=== PATIENT | female | born 1930 | race Caucasian/White ===

== ENCOUNTER 2017-02-15 12:42 | Inpatient (IN) | payer MEDICARE ==
[2017-02-15 13:08] LABS: INR-International Normal Ratio 1.2; PTT 28.3 SEC (22.9-36.1); Prothrombin Time 15.7 SEC (12.0-14.7)
[2017-02-15 13:18] LABS: ALT (SGPT) 9 U/L (8-55); AST (SGOT) 15 U/L (5-34); Albumin 3.7 g/dL (3.4-4.8); Alkaline Phosphatase 68 U/L (40-150); Anion Gap 17 mmol/L (10-20); BUN (Urea Nitrogen) 21 mg/dL (9.8-20.1); Bilirubin, Total 0.8 mg/dL (0.2-1.2); Calc. Creatinine Clearance 0 mL/min (70-130); Calcium 9.2 mg/dL (7.8-10.44); Carbon Dioxide 23 mmol/L (23-31); Chloride 93 mmol/L (98-107); Estimated GFR-MDRD 43; Globulin 3.3 g/dL (2.4-3.5); Glucose 100 mg/dL (83-110); Potassium 5.1 mmol/L (3.5-5.1); Sodium 128 mmol/L (136-145)
[2017-02-15 13:21] LABS: Band 1 % (5-11); CKMB 0.8 ng/mL (0-6.6); Hemoglobin 13.2 g/dL (12.0-16.0); Lymphocytes 15 % (21-51); MDiff Complete? YES; Mean Corpuscular HGB CONC 36.3 g/dL (32.0-36.0); Mean Corpuscular Hemoglobin 34.6 pg (27.0-31.0); Mean Corpuscular Volume 95.3 fl (81.0-99.0); Mean Platelet Volume 6.1 fL (7.4-10.4); Monocytes 7 % (0-10); Neutrophil 77 % (42-75); Platelet Count 242 thou/uL (130-400); RBC Distribution Width 12.1 % (11.5-14.5); Red Blood Cell (RBC) Count 3.81 mill/uL (4.20-5.40); Troponin I Less than 0.010 ng/mL (< 0.028); White Blood Cell (WBC) Count 14.8 thou/uL (4.8-10.8)
[2017-02-15] MEDS ORDERED: Acetaminophen 325 MG TAB ONE (13:30)
[2017-02-15 13:38] LABS: Bilirubin Negative (Negative); Blood, Urine Negative (Negative); Clarity Clear (Clear); Glucose, Urine (Dipstick) Negative (Negative); Leukocyte Negative (Negative); Nitrite Negative (Negative); Protein, Urine (Dipstick) 30 mg/dL (Neg-Trace); Specific Gravity, Urine 1.015 (1.005-1.030)
[2017-02-15 13:39] LABS: Bacteria/HPF None Seen HPF (None Seen); RBC/HPF 0-3 HPF (0-3); Squamous Epithelial 0-3 HPF (0-3); WBC/HPF None Seen HPF (0-3)
[2017-02-15] MEDS ORDERED: Azithromycin 500 MG VIAL ONE (15:11)
--- NOTE | 2017-02-15 15:22 | RAD ---
PORTABLE CHEST: DATE: 02/15/17. PROVIDED CLINICAL HISTORY: Altered mental status and fever. FINDINGS: No comparisons. The cardiac silhouette appears enlarged. There is ectasia or aneurysm involving the descending thor acic aorta. The descending thoracic aorta appears tortuous. There is elevation of the right hemidi aphragm of unknown chronicity. There is opacity involving the right middle lung zone which appears parenchymal in nature and may reflect pneumonia. Opacity involving the left lower lung zone appears somewhat mass-like. It is uncertain whether this represents a portion of the large hiatal hernia o r this could be an additional area of consolidation or mass. IMPRESSION: 1. Ectasia/aneurysm of the descending thoracic aorta. 2. Right mid lung zone airspace disease compatible with pneumonia in the appropriate clinical compl ex. 3. Elevation of the right hemidiaphragm of unknown chronicity. 4. Mass-like opacity at the left lung base. Correlation with lateral view or chest CT recommended. POS: [facility]
--- NOTE | 2017-02-15 15:24 | CT ---
CT BRAIN: DATE: 02/15/17. PROVIDED CLINICAL HISTORY: Altered mental status and slurred speech. FINDINGS: No comparisons. The ventricular system appears normal in size and morphology. There is no evidence for intracranial hemorrhage or mass effect. Extensive chronic microvascular ischemic changes are s een involving the periventricular white matter and right basal ganglia. The osseous structures and extracranial soft tissues demonstrate an unremarkable CT appearance. IMPRESSION: 1. No evidence for intracranial hemorrhage or mass effect. 2. Extensive chronic microvascular ischemic change. POS: [facility]
--- NOTE | 2017-02-15 17:11 | CT ---
CT ANGIOGRAM OF THE CHEST AORTIC DISSECTION PROTOCOL HISTORY: Congenital aneurysm versus dissection. Widening of the aorta seen on chest x-ray. TECHNIQUE: A CT angiogram of the chest and abdomen was performed after the intravenous administration of contra st, and 3D rendering was provided. FINDINGS: There is wedge-shaped right upper lobe air space opacity, concerning for pneumonia. Obstructive pro ximal mass cannot be excluded. There are a few paratracheal lymph nodes. The pulmonary trunk measures 31 mm, abnormally dilated. There is mild atherosclerotic plaque of the aorta. There is ectasia and mild tortuosity of the aorta without dilatation. There is a large hia stuart hernia, for which there was organoaxial volvulus without evidence of obstruction. The distal common bile duct measures just over a centimeter. There is mild intrahepatic biliary dil atation. No calculus is seen on this examination. There is some tapering of the distal common bile duct. The celiac trunk and superior mesenteric artery are both patent. No dilated loops of bowel. There are spondylotic changes throughout the spine. IMPRESSION: 1. No aortic dissection nor aneurysm. 2. Extensive tortuosity of the thoracic aorta, including the ascending, transverse, and descending thoracic aorta with some atherosclerotic plaque. 3. Organoaxial volvulus without evidence of obstruction. This is likely chronic in nature, due to the large hernia. 4. Dilatation of the thoracic esophagus, likely due to chronic volvulus. 5. Peripheral wedge-shaped opacity in the right upper lobe, likely an infectious process, although a proximal obstructing mass cannot be excluded, and followup after treatment is recommended. 6. Mildly prominent paratracheal lymph nodes, that may be reactive. 7. Mild extrahepatic and intrahepatic biliary dilatation without obstructing mass seen. Follow-up ERCP or MRCP may be of benefit in this patient. 8. Mild dilatation of the pulmonary trunk, suggesting pulmonary arterial hypertension. 9. Small right pleural effusion. POS: [facility]
[2017-02-15] MEDS ORDERED: Bisacodyl 5 MG TAB PO PRN (18:48)
[2017-02-15] MEDS ORDERED: Milk Of Magnesia 30 ML UDCUP PO PRN (18:48)
[2017-02-15] MEDS ORDERED: traMADol HCl 50 MG TAB PO PRN (19:29)
[2017-02-15] MEDS: Montelukast Sodium 10 mg Tablet PO SCH (22:04)
[2017-02-15] MEDS: Gabapentin 300 MG CAP PO SCH (22:05)
[2017-02-15] MEDS: TROSPIUM 20 MG TABLET PO SCH (22:05)
--- NOTE | 2017-02-16 01:39 | HP ---
DATE OF ADMISSION: 02/15/2017 CHIEF COMPLAINT: Altered mental status with fevers. HISTORY OF PRESENT ILLNESS: Patient is an 86-year-old white female who apparently has a history of moderate dementia, who lives with her family. The family states that the last night, patient was mo re confused, speech was slightly slower than usual. This morning when she woke up, she had some slu rring of her words, more problems with memory and more confusion. She was found to have fever and w as brought to the hospital for evaluation. PAST MEDICAL HISTORY: 1. Macular degeneration. 2. Dementia, Alzheimer's type. 3. History of hypertension. 4. History of hyperlipidemia. 5. Hypothyroidism. 6. History of asthma. PAST SURGICAL HISTORY: Patient has history of right knee replacement, bilateral cataracts and bobby cystectomy. ALLERGIES: SHELLFISH. CURRENT MEDICATIONS: Synthroid 75 mcg daily, montelukast 10 mg daily, gabapentin 300 mg 2 tablets d aily, benazepril 10 mg q.p.m. tramadol 50 mg q.6 h. p.r.n. pain, calcium with vitamin D daily and Zy rtec 10 mg p.o. daily p.r.n. allergies. FAMILY HISTORY: Positive family history of hypertension and heart disease. REVIEW OF SYSTEMS: Patient has had a couple days of decreased appetite with occasional cough, nonpr oductive, some hoarseness was reported. No sore throat. No increased rhinorrhea above her baseline . No recent visual changes reported. Patient had fevers on the day of admission and increased conf usion as in HPI. Appetite again has been decreased, but no emesis nor diarrhea reported. No chest pain. No obvious shortness of breath reported. No dysuria, hematuria. No change in urinary freque ncy. No significant weight loss nor weight gain reported. No new rashes. Patient denies back pain . Patient again has dementia and is a poor historian. Review of systems obtained through hospital records and from family reports. PHYSICAL EXAMINATION: VITAL SIGNS: Blood pressure was 113/53, temperature initially in the emergency room was 101.3, now 97.5; pulse 82; respiratory rate was 20, O2 sat with 95% on 2 liters. GENERAL: Elderly white female, confused, in no obvious distress. HEENT: Atraumatic, normocephalic. Extraocular movements were intact. Pupils were equal, round, an d reactive to light and accommodation. Oropharynx, mucous membranes were moist. No exudate, discha rge or lesions. NECK: Supple. No masses palpated. No bruits auscultated. CHEST: Had coarse breath sounds without rales or wheezes. HEART: Regular rate and rhythm with occasional ectopic beats. ABDOMEN: Soft, nontender, nondistended. No masses were palpated. EXTREMITIES: Trace edema at the ankles bilaterally. BACK: No CVA tenderness. LABORATORY DATA AND X-RAY FINDINGS: Chest x-ray showed right mid lung zone airspace disease compati ble with pneumonia, the hemidiaphragm was noted as well with some widening of the mediastinum, so a CT scan of the chest was obtained, which showed no aortic dissection or aneurysm. There was an exte nsively tortuous thoracic aorta including this ascending transverse and descending thoracic aorta wi th arthrosclerotic plaques. There were signs of a chronic volvulus, which was not obstructive to th e large hiatal hernia. There was a wedge-shaped peripheral opacity in the right upper lung consiste nt with pneumonia and there is a small right pleural effusion. There were some mild extrahepatic an d intrahepatic biliary dilatation without obstructing mass seen. CBC had a white count 14,800 with an H and H of 13.2 and 36.3. PT/INR was in the normal range. Labs showed a sodium of 128, chloride of 96, BUN of 21 and creatinine of 1.19. ASSESSMENT AND PLAN: 1. Pneumonia. Patient was started on Zithromax and Rocephin. We will start her on breathing treat ments to help with any respiratory congestion. Continue oxygen to keep sats greater than 90%. I wi ll follow up chest x-ray in 48 hours. 2. Hyponatremia. Patient was given half a liter of normal saline in the emergency room, unsure abo ut patient's baseline serum sodium. We will try to obtain old records and will follow this for any signs of worsening or improvement. 3. Dementia, Alzheimer's type. Patient is on Aricept. We will have a monitor for the bed and fall precautions. DISPOSITION: Plan is for the patient to be discharged to home once she is medically stable.
[2017-02-16] MEDS: Levothyroxine Sodium 25 MCG TAB PO SCH (05:57)
[2017-02-16 06:30] LABS: #Basophils 0.1 thou/uL (0.0-0.2); #Eosinphils 0.2 thou/uL (0.0-0.7); #Lymphocytes 0.9 thou/uL (1.20-3.40); #Monocytes 1.1 thou/uL (0.11-0.59); #Neutrophils 10.9 thou/uL (1.40-6.50); %Basophils 0.9 % (0.0-1.0); %Eosinophils 1.3 % (0.0-10.0); %Lymphocytes 6.6 % (21.0-51.0); %Monocytes 8.1 % (0.0-10.0); %Neutrophils 83.1 % (42.0-75.0); Hemoglobin 12.2 g/dL (12.0-16.0); Mean Corpuscular HGB CONC 33.9 g/dL (32.0-36.0); Mean Corpuscular Hemoglobin 32.3 pg (27.0-31.0); Mean Corpuscular Volume 95.3 fl (81.0-99.0); Mean Platelet Volume 6.3 fL (7.4-10.4); Platelet Count 249 thou/uL (130-400); Red Blood Cell (RBC) Count 3.78 mill/uL (4.20-5.40); White Blood Cell (WBC) Count 13.1 thou/uL (4.8-10.8)
[2017-02-16 07:13] LABS: ALT (SGPT) 9 U/L (8-55); AST (SGOT) 13 U/L (5-34); Albumin 3.5 g/dL (3.4-4.8); Alkaline Phosphatase 72 U/L (40-150); Anion Gap 16 mmol/L (10-20); BUN (Urea Nitrogen) 15 mg/dL (9.8-20.1); Bilirubin, Total 0.5 mg/dL (0.2-1.2); Calc. Creatinine Clearance 63 mL/min (70-130); Calcium 8.9 mg/dL (7.8-10.44); Carbon Dioxide 26 mmol/L (23-31); Chloride 97 mmol/L (98-107); Estimated GFR-MDRD 69; Globulin 2.5 g/dL (2.4-3.5); Glucose 99 mg/dL (83-110); Potassium 4.9 mmol/L (3.5-5.1); Sodium 134 mmol/L (136-145)
--- NOTE | 2017-02-16 09:03 | RAD ---
CHEST 1 VIEW: HISTORY: Pneumonia. COMPARISON: Chest 1 view prior day. FINDINGS: There are increased components of right upper lobe airspace opacity. Ectasia and tortuosity of the aorta is similar. IMPRESSION: Right upper lobe pneumonia. Remainder of the other findings are unchanged. POS: [facility]
[2017-02-16] MEDS: Calcium Carbonate + Vit D 500 MG TAB PO SCH (09:13)
[2017-02-16] MEDS: Gabapentin 300 MG CAP PO SCH ×2 (09:14→23:00)
[2017-02-16] MEDS: Multivitamin W/ Minerals 1 TAB PO SCH (09:14)
[2017-02-16] MEDS: Loratadine 10 MG TAB PO SCH (09:14)
[2017-02-16] MEDS: TROSPIUM 20 MG TABLET PO SCH ×2 (09:15→23:00)
[2017-02-16] MEDS: cefTRIAXone\\ROCEPHIN 1 GM in Sodium Chloride 0.9% 100 ML IVPB SCH (14:30)
[2017-02-16] MEDS: Azithromycin 500 MG in Sodium Chloride 0.9% 250 ML 250 ML IVPB SCH (15:42)
[2017-02-16] MEDS: Montelukast Sodium 10 mg Tablet PO SCH (23:00)
[2017-02-16] MEDS: Acetaminophen 325 MG TAB PO PRN (23:00)
[2017-02-17] MEDS: Levothyroxine Sodium 25 MCG TAB PO SCH (05:53)
[2017-02-17] MEDS: Gabapentin 300 MG CAP PO SCH ×2 (08:35→21:14)
[2017-02-17] MEDS: Loratadine 10 MG TAB PO SCH (08:35)
[2017-02-17] MEDS: Multivitamin W/ Minerals 1 TAB PO SCH (08:35)
[2017-02-17] MEDS: Calcium Carbonate + Vit D 500 MG TAB PO SCH (08:35)
[2017-02-17] MEDS: TROSPIUM 20 MG TABLET PO SCH ×2 (08:36→21:14)
[2017-02-17] MEDS: cefTRIAXone\\ROCEPHIN 1 GM in Sodium Chloride 0.9% 100 ML IVPB SCH (13:16)
[2017-02-17] MEDS: Azithromycin 500 MG in Sodium Chloride 0.9% 250 ML 250 ML IVPB SCH (14:45)
[2017-02-17] MEDS: Montelukast Sodium 10 mg Tablet PO SCH (21:14)
[2017-02-18] MEDS: Levothyroxine Sodium 25 MCG TAB PO SCH (05:40)
[2017-02-18 07:16] LABS: Anion Gap 13 mmol/L (10-20); BUN (Urea Nitrogen) 9 mg/dL (9.8-20.1); Calc. Creatinine Clearance 66 mL/min (70-130); Calcium 9.5 mg/dL (7.8-10.44); Carbon Dioxide 29 mmol/L (23-31); Chloride 96 mmol/L (98-107); Estimated GFR-MDRD 73; Glucose 105 mg/dL (83-110); Potassium 4.2 mmol/L (3.5-5.1); Sodium 134 mmol/L (136-145)
[2017-02-18 07:20] LABS: #Basophils 0.1 thou/uL (0.0-0.2); #Eosinphils 0.2 thou/uL (0.0-0.7); #Lymphocytes 1.4 thou/uL (1.20-3.40); %Basophils 1.6 % (0.0-1.0); %Eosinophils 2.1 % (0.0-10.0); %Lymphocytes 15.7 % (21.0-51.0); %Neutrophils 68.6 % (42.0-75.0); Hemoglobin 12.3 g/dL (12.0-16.0); Mean Corpuscular HGB CONC 33.9 g/dL (32.0-36.0); Mean Corpuscular Hemoglobin 32.7 pg (27.0-31.0); Mean Corpuscular Volume 96.3 fl (81.0-99.0); Mean Platelet Volume 5.8 fL (7.4-10.4); Platelet Count 270 thou/uL (130-400); RBC Distribution Width 12.3 % (11.5-14.5); Red Blood Cell (RBC) Count 3.75 mill/uL (4.20-5.40); White Blood Cell (WBC) Count 8.7 thou/uL (4.8-10.8)
[2017-02-18] MEDS: TROSPIUM 20 MG TABLET PO SCH ×2 (08:45→22:24)
[2017-02-18] MEDS: Multivitamin W/ Minerals 1 TAB PO SCH (08:45)
[2017-02-18] MEDS: Calcium Carbonate + Vit D 500 MG TAB PO SCH (08:46)
[2017-02-18] MEDS: Gabapentin 300 MG CAP PO SCH ×2 (08:46→20:43)
[2017-02-18] MEDS: Loratadine 10 MG TAB PO SCH (08:46)
[2017-02-18 12:01] VITALS: BMI 31.4
[2017-02-18] MEDS: cefTRIAXone\\ROCEPHIN 1 GM in Sodium Chloride 0.9% 100 ML IVPB SCH (13:52)
[2017-02-18] MEDS: Azithromycin 500 MG in Sodium Chloride 0.9% 250 ML 250 ML IVPB SCH (16:02)
[2017-02-18] MEDS ORDERED: Lorazepam 0.5 MG TAB PO SCH (20:30)
[2017-02-18] MEDS: Montelukast Sodium 10 mg Tablet PO SCH (20:43)
[2017-02-18] MEDS: Acetaminophen 325 MG TAB PO PRN (20:44)
--- NOTE | 2017-02-18 20:55 | RAD ---
FRONTAL VIEW CHEST 02/18/17 COMPARISON: Examination two days prior. CLINICAL HISTORY: Tachypnea. FINDINGS: There remains consolidation within the right upper lobe. Patchy bibasilar opacities remain. There re cindy enlargement of the cardiomediastinal silhouette. IMPRESSION: Redemonstration of right upper lobe consolidation. Patchy bibasilar opacities also remain. Continued followup is recommended. POS: [facility]
[2017-02-19] MEDS: Levothyroxine Sodium 25 MCG TAB PO SCH (06:19)
[2017-02-19 06:24] VITALS: BP 165/79; TEMP 98.3
[2017-02-19 07:24] LABS: #Basophils 0.1 thou/uL (0.0-0.2); #Eosinphils 0.4 thou/uL (0.0-0.7); #Lymphocytes 1.2 thou/uL (1.20-3.40); #Monocytes 0.9 thou/uL (0.11-0.59); #Neutrophils 5.4 thou/uL (1.40-6.50); %Basophils 1.7 % (0.0-1.0); %Eosinophils 4.6 % (0.0-10.0); %Lymphocytes 15.3 % (21.0-51.0); %Monocytes 11.5 % (0.0-10.0); %Neutrophils 66.9 % (42.0-75.0); Hemoglobin 12.5 g/dL (12.0-16.0); Mean Corpuscular Hemoglobin 32.7 pg (27.0-31.0); Mean Corpuscular Volume 96.2 fl (81.0-99.0); Mean Platelet Volume 5.7 fL (7.4-10.4); Platelet Count 287 thou/uL (130-400); RBC Distribution Width 12.2 % (11.5-14.5); Red Blood Cell (RBC) Count 3.81 mill/uL (4.20-5.40)
[2017-02-19 07:41] LABS: Anion Gap 14 mmol/L (10-20); BUN (Urea Nitrogen) 12 mg/dL (9.8-20.1); Calc. Creatinine Clearance 71 mL/min (70-130); Calcium 9.1 mg/dL (7.8-10.44); Carbon Dioxide 30 mmol/L (23-31); Chloride 97 mmol/L (98-107); Estimated GFR-MDRD 80; Glucose 94 mg/dL (83-110); Potassium 4.7 mmol/L (3.5-5.1); Sodium 136 mmol/L (136-145)
[2017-02-19] MEDS: Gabapentin 300 MG CAP PO SCH (08:46)
[2017-02-19] MEDS: Loratadine 10 MG TAB PO SCH (08:46)
[2017-02-19] MEDS: Multivitamin W/ Minerals 1 TAB PO SCH (08:46)
[2017-02-19] MEDS ORDERED: Levalbuterol HCl 0.63 MG/3 ML NEB NEB PRN (10:34)
[2017-02-19] MEDS: Calcium Carbonate + Vit D 500 MG TAB PO SCH (11:09)
[2017-02-19] MEDS: TROSPIUM 20 MG TABLET PO SCH (11:09)
[2017-02-19] MEDS ORDERED: Levalbuterol HCl 1.25 MG/0.5 ML NEB NEB SCH (15:00)
--- NOTE | 2017-02-19 18:53 | DIS ---
DATE OF ADMISSION: 02/15/2017 DATE OF TRANSFER: 02/19/2017 ADMISSION DIAGNOSES: 1. Right upper lobe community-acquired pneumonia. 2. Hyponatremia. 3. Renal insufficiency. DISCHARGE DIAGNOSES: 1. Right upper lobe community-acquired pneumonia. 2. Hyponatremia. 3. Renal insufficiency. ATTENDING PHYSICIAN: Dr. Malka Noriega. HISTORY AND PHYSICAL: Please see dictated report from the date of admission. PROCEDURES: 1. Brain CT on 02/15/2017 shows no evidence for intracranial hemorrhage or mass effect. Extensive chronic microvascular ischemic change. 2. Chest x-ray from 02/15/2017 shows ectasias/aneurysm of the descending thoracic aorta. Right mid lung zone airspace disease compatible with pneumonia in the appropriate clinical complex. Elevatio n of the right hemidiaphragm of unknown chronicity. Mass-like opacity at the left lung base, correl ation with lateral view of chest CT recommended or chest CT recommended. 3. CT dissection protocol from 02/15/2017. No aortic dissection or aneurysm. Extensive tortuosity of the thoracic aorta, including the ascending, transverse, and descending thoracic aorta with some atherosclerotic plaque. Organoaxial volvulus without evidence of obstruction. This is likely guide visitor barb in nature, due to a large hernia. Dilatation of the thoracic esophagus likely due to chronic vo lvulus. Peripheral wedge shaped opacity in the right upper lobe, likely an infectious process, alth ough a proximal obstructing mass cannot be excluded and followup after treatment is recommended. Mi ldly prominent paratracheal lymph nodes, that may be reactive. Mild extrahepatic and intrahepatic b iliary duct dilatation without obstructing mass seen. Followup ERCP or MRCP may be of benefit in th is patient. Mild dilatation of the pulmonary trunk, suggesting pulmonary arterial hypertension. Sm all right pleural effusion. 4. Chest x-ray on 02/16/2017 shows right upper lobe pneumonia. Remainder of other findings unchang ed. 5. Chest x-ray from 02/18/2017 shows patchy bibasilar opacities remaining. Redemonstration of righ t upper lobe consolidation. HOSPITAL COURSE: Ms. Kaye is an 86-year-old female with past medical history of asthma/C OPD, who has dementia and is cared for by her son and [id number] and has 24-hour caregiver who presented to the emergency room with alteration of mental status. Her workup included studies above which essentially pointed to a right upper lobe pneumonia as the cause. The patient initially had fever in the ER. This improved upon admission to the floor and she has been afebrile for greater th an 48 hours. She had a leukocytosis which also improved to normal during her treatment course. She had blood cultures x2 which have been negative at 48 hours. Her chest x-ray has been stable. The patient was treated with IV Rocephin and Zithromax, O2 was applied to correct her hypoxia. She had been administered DuoNeb q.6h. and albuterol q.2h. p.r.n. Clinically, she has done well and her men stuart status has improved to baseline. However, on the night prior to her transfer, the patient exper ienced an episode of increased respiratory rate without observable signs of respiratory distress. H er oxygen level dropped slightly, her pulse increased. This was immediately following a DuoNeb margaux tment. This improved throughout the night and the patient continues to be slightly tachypneic on e morning of my transfer. She is without complaints and denies shortness of breath. She continues a high pitched cough at this time. She continues to have coarse rhonchi in the right upper and lowe r lung bases. Speech therapy has evaluated her and has been okayed for a regular diet with aspirati on precautions. PT and OT have also evaluated her and we will continue treating her as our swing be d patient. Given the episode last night, I have decided that it would be prudent to transfer the patient to our swing bed unit for continued IV antibiotics, PT and OT and further monitoring. I spoke with Mr. Kaye, her son and [id number] and updated them with this plan, which they are okay with at the time of her transfer. The patient initially had some hyponatremia on admission with a sodium of 128, which is improved to 136 on the day of her transfer. She also had some acute renal insufficiency initially with a BUN of 21 and creatinine of 1.19. This has improved to 12 and 0.69 on the date of her transfer. DISPOSITION: Transfer to swing bed unit. CONDITION: Stable. MEDICATIONS: 1. Zithromax 250 mg IV for 1 final dose 02/19/2017 to complete a 5-day treatment course. 2. Benazepril 10 mg p.o. q. day. 3. Calcium carbonate plus vitamin D 500 mg p.o. q. day. 4. Neurontin 300 mg p.o. b.i.d. 5. Levothyroxine 75 mcg p.o. q. day. 6. Claritin 10 mg p.o. q. day. 7. Loratadine 10 mg p.o. q. day. 8. Singulair 10 mg p.o. q.p.m. 9. MVI 1 p.o. q. day. 10. Protonix 40 mg p.o. q. day. 11. Sodium chloride flushes. 12. Trospium chloride 20 mg p.o. b.i.d. 13. Tylenol 650 mg p.o. q.4h. p.r.n. headache, fever, or pain. 14. Dulcolax 10 mg p.o. q. day p.r.n. constipation. 15. Milk of magnesia 30 mL p.o. q. day p.r.n. constipation. 16. Tramadol 50 mg p.o. daily p.r.n. pain. 17. Levalbuterol 1.25 mg and q.8h. 18. Levalbuterol 0.63 mg nebulizer q.2h. p.r.n. shortness of breath. 19. Rocephin 1 g IV q.12h. FOLLOWUP: Followup will be per swing bed disposition with , her primary care provider in critical access hospitally 7-10 days after her discharge.
== END 2017-02-19 12:30 | disposition swing bed (61) | DRG 193 ==
LOC: BURERS 12:42 → BURMED 15:32
PROVIDERS: ADMIT Family Medicine; ATTEND Family Medicine
DX: J18.9 Pneumonia, unspecified organism (principal); K56.2 Volvulus; E87.1 Hypo-osmolality and hyponatremia; G30.9 Alzheimer's disease, unspecified; Q25.46 Tortuous aortic arch; F02.80 Dementia in other diseases classified elsewhere, unspecified severity, without behavioral disturbance, psychotic disturbance, mood disturbance, and anxiety; N28.9 Disorder of kidney and ureter, unspecified; I10 Essential (primary) hypertension; E03.9 Hypothyroidism, unspecified; E78.5 Hyperlipidemia, unspecified; H35.30 Unspecified macular degeneration; Z96.651 Presence of right artificial knee joint
CPT/HCPCS: 36415; 51701; 70450; 71010; 71275; 80048; 80053; 81003; 81015; 82553; 84443; 84484; 85025; 85610; 85730; 87040; 93005; 94640; 96361; 96365; 96375; A4216; A4353; G8978-GP-CL; G8979-GP-CJ; G8987-GO-CM; G8988-GO-CK; G8996-GN-CL; G8997-GN-CK; J0456; J0696; J7050; J7620

== ENCOUNTER 2017-02-19 13:24 | Inpatient (IN) | payer MEDICARE ==
[2017-02-19] MEDS ORDERED: Bisacodyl 5 MG TAB PO PRN (14:55)
[2017-02-19] MEDS ORDERED: Acetaminophen 325 MG TAB PO PRN (14:56)
[2017-02-19] MEDS ORDERED: traMADol HCl 50 MG TAB PO PRN (14:59)
[2017-02-19] MEDS ORDERED: Azithromycin 500 MG in Sodium Chloride 0.9% 250 ML 250 ML IVPB SCH (15:00)
[2017-02-19] MEDS ORDERED: Levalbuterol HCl 0.63 MG/3 ML NEB NEB PRN (15:01)
[2017-02-19] MEDS: Montelukast Sodium 10 mg Tablet PO SCH (20:11)
[2017-02-19] MEDS: TROSPIUM 20 MG TABLET PO SCH (20:11)
[2017-02-19] MEDS: cefTRIAXone\\ROCEPHIN 1 GM in Sodium Chloride 0.9% 100 ML IVPB SCH (20:11)
[2017-02-19] MEDS: Gabapentin 300 MG CAP PO SCH (20:11)
[2017-02-19] MEDS ORDERED: Albuterol Sulfate 1.25 MG/3 ML NEB NEB PRN (20:14)
[2017-02-19] MEDS: Albuterol Sulfate 2.5 mg/3 ml Neb NEB SCH (23:13)
[2017-02-20] MEDS: Albuterol Sulfate 2.5 mg/3 ml Neb NEB SCH ×3 (06:12→23:07)
[2017-02-20] MEDS: Levothyroxine Sodium 25 MCG TAB PO SCH (06:12)
[2017-02-20] MEDS: cefTRIAXone\\ROCEPHIN 1 GM in Sodium Chloride 0.9% 100 ML IVPB SCH ×2 (08:55→20:32)
[2017-02-20] MEDS: TROSPIUM 20 MG TABLET PO SCH ×2 (08:58→20:32)
[2017-02-20] MEDS: Calcium Carbonate + Vit D 500 MG TAB PO SCH (08:58)
[2017-02-20] MEDS: Loratadine 10 MG TAB PO SCH (08:58)
[2017-02-20] MEDS: Multivitamin W/ Minerals 1 TAB PO SCH (08:58)
[2017-02-20] MEDS: Gabapentin 300 MG CAP PO SCH ×2 (08:58→20:32)
[2017-02-20] MEDS: Montelukast Sodium 10 mg Tablet PO SCH (20:32)
[2017-02-21] MEDS: Levothyroxine Sodium 25 MCG TAB PO SCH (06:34)
[2017-02-21] MEDS: Albuterol Sulfate 2.5 mg/3 ml Neb NEB SCH ×3 (06:34→23:10)
[2017-02-21] MEDS: cefTRIAXone\\ROCEPHIN 1 GM in Sodium Chloride 0.9% 100 ML IVPB SCH ×2 (08:39→21:30)
[2017-02-21] MEDS: Loratadine 10 MG TAB PO SCH (08:40)
[2017-02-21] MEDS: Calcium Carbonate + Vit D 500 MG TAB PO SCH (08:41)
[2017-02-21] MEDS: Gabapentin 300 MG CAP PO SCH ×2 (08:41→21:11)
[2017-02-21] MEDS: TROSPIUM 20 MG TABLET PO SCH ×2 (08:42→21:11)
[2017-02-21] MEDS: Multivitamin W/ Minerals 1 TAB PO SCH (08:42)
--- NOTE | 2017-02-21 09:36 | RAD ---
ONE VIEW CHEST: History: Pneumonia, follow up. Comparison: 02-18-17 FINDINGS: Portable upright chest demonstrates an enlarged cardiac silhouette. Pulmonary vessels and hilum are normal. Persistent mild blunting of both costophrenic angles. Patchy alveolar opacification in the l eft lower lobe, right mid lung and right lower lobe are redemonstrated. IMPRESSION: Stable multifocal opacification. POS: [facility]
[2017-02-21] MEDS: Montelukast Sodium 10 mg Tablet PO SCH (21:11)
[2017-02-22] MEDS: Levothyroxine Sodium 25 MCG TAB PO SCH (07:24)
[2017-02-22] MEDS: Albuterol Sulfate 2.5 mg/3 ml Neb NEB SCH ×3 (09:27→22:02)
[2017-02-22] MEDS: TROSPIUM 20 MG TABLET PO SCH ×2 (09:28→21:29)
[2017-02-22] MEDS: Gabapentin 300 MG CAP PO SCH ×2 (09:28→21:29)
[2017-02-22] MEDS: Calcium Carbonate + Vit D 500 MG TAB PO SCH (09:29)
[2017-02-22] MEDS: Loratadine 10 MG TAB PO SCH (09:29)
[2017-02-22] MEDS: Multivitamin W/ Minerals 1 TAB PO SCH (09:29)
[2017-02-22] MEDS: cefTRIAXone\\ROCEPHIN 1 GM in Sodium Chloride 0.9% 100 ML IVPB SCH ×2 (09:33→21:23)
[2017-02-22] MEDS: Montelukast Sodium 10 mg Tablet PO SCH (21:29)
[2017-02-23] MEDS: Albuterol Sulfate 2.5 mg/3 ml Neb NEB SCH ×3 (06:06→22:46)
[2017-02-23] MEDS: Levothyroxine Sodium 25 MCG TAB PO SCH (06:06)
[2017-02-23] MEDS: Loratadine 10 MG TAB PO SCH (09:15)
[2017-02-23] MEDS: TROSPIUM 20 MG TABLET PO SCH ×2 (09:15→21:12)
[2017-02-23] MEDS: Multivitamin W/ Minerals 1 TAB PO SCH (09:15)
[2017-02-23] MEDS: Gabapentin 300 MG CAP PO SCH ×2 (09:16→21:12)
[2017-02-23] MEDS: Calcium Carbonate + Vit D 500 MG TAB PO SCH (09:16)
[2017-02-23] MEDS: Milk Of Magnesia 30 ML UDCUP PO PRN ×2 (09:17→09:20)
[2017-02-23] MEDS: cefTRIAXone\\ROCEPHIN 1 GM in Sodium Chloride 0.9% 100 ML IVPB SCH ×2 (09:23→21:11)
[2017-02-23] MEDS ORDERED: Nystatin Powder 15 GM BOT TOP PRN (16:31)
[2017-02-23] MEDS: Montelukast Sodium 10 mg Tablet PO SCH (21:12)
[2017-02-24] MEDS: Levothyroxine Sodium 25 MCG TAB PO SCH (05:42)
[2017-02-24] MEDS: Albuterol Sulfate 2.5 mg/3 ml Neb NEB SCH ×2 (05:43→15:38)
[2017-02-24 06:23] VITALS: BP 137/63; TEMP 97.6
[2017-02-24 07:12] LABS: #Basophils 0.1 thou/uL (0.0-0.2); #Eosinphils 0.3 thou/uL (0.0-0.7); #Lymphocytes 1.6 thou/uL (1.20-3.40); #Monocytes 0.6 thou/uL (0.11-0.59); #Neutrophils 4.8 thou/uL (1.40-6.50); %Basophils 1.3 % (0.0-1.0); %Eosinophils 3.9 % (0.0-10.0); %Lymphocytes 22.1 % (21.0-51.0); %Monocytes 8.1 % (0.0-10.0); %Neutrophils 64.6 % (42.0-75.0); Hemoglobin 12.5 g/dL (12.0-16.0); Mean Corpuscular HGB CONC 33.8 g/dL (32.0-36.0); Mean Corpuscular Hemoglobin 31.7 pg (27.0-31.0); Mean Platelet Volume 4.9 fL (7.4-10.4); Platelet Count 436 thou/uL (130-400); RBC Distribution Width 11.7 % (11.5-14.5); Red Blood Cell (RBC) Count 3.95 mill/uL (4.20-5.40); White Blood Cell (WBC) Count 7.4 thou/uL (4.8-10.8)
[2017-02-24 07:16] LABS: Anion Gap 13 mmol/L (10-20); BUN (Urea Nitrogen) 14 mg/dL (9.8-20.1); Calc. Creatinine Clearance 68 mL/min (70-130); Calcium 9.4 mg/dL (7.8-10.44); Carbon Dioxide 29 mmol/L (23-31); Chloride 95 mmol/L (98-107); Estimated GFR-MDRD 76; Glucose 98 mg/dL (83-110); Potassium 4.7 mmol/L (3.5-5.1); Sodium 132 mmol/L (136-145)
[2017-02-24] MEDS: Loratadine 10 MG TAB PO SCH (08:33)
[2017-02-24] MEDS: Gabapentin 300 MG CAP PO SCH (08:34)
[2017-02-24] MEDS: TROSPIUM 20 MG TABLET PO SCH (08:34)
[2017-02-24] MEDS: Multivitamin W/ Minerals 1 TAB PO SCH (08:34)
[2017-02-24] MEDS: Calcium Carbonate + Vit D 500 MG TAB PO SCH (08:34)
[2017-02-24] MEDS: cefTRIAXone\\ROCEPHIN 1 GM in Sodium Chloride 0.9% 100 ML IVPB SCH (08:35)
[2017-02-24] MEDS: Milk Of Magnesia 30 ML UDCUP PO PRN (08:35)
== END 2017-02-24 18:20 | disposition home or self-care (01) | DRG 194 ==
LOC: BURMED 13:24
PROVIDERS: ADMIT Family Medicine; ATTEND Family Medicine
DX: J18.9 Pneumonia, unspecified organism (principal); E87.1 Hypo-osmolality and hyponatremia; N28.9 Disorder of kidney and ureter, unspecified; Z66 Do not resuscitate
CPT/HCPCS: 36415; 71010; 80048; 85025; A4216; G8978-GP-CI; G8979-GP-CI; G8987-GO-CM; G8988-GO-CK; J0696; J7050; J7611

== ENCOUNTER 2017-03-06 11:35 | Outpatient (CLI) | payer MEDICARE ==
[2017-03-06 12:33] LABS: Anion Gap 14 mmol/L (10-20); BUN (Urea Nitrogen) 11 mg/dL (9.8-20.1); Calc. Creatinine Clearance 0 mL/min (70-130); Calcium 9.3 mg/dL (7.8-10.44); Carbon Dioxide 27 mmol/L (23-31); Chloride 96 mmol/L (98-107); Estimated GFR-MDRD 68; Glucose 92 mg/dL (83-110); Potassium 4.7 mmol/L (3.5-5.1); Sodium 132 mmol/L (136-145)
== END 2017-03-06 11:36 | disposition home or self-care (01) ==
LOC: HPCALD 11:35
PROVIDERS: ATTEND Family Medicine
DX: E87.1 Hypo-osmolality and hyponatremia (principal); R79.89 Other specified abnormal findings of blood chemistry
CPT/HCPCS: 36415; 80048

== ENCOUNTER 2017-03-06 12:23 | Outpatient (CLI) | payer MEDICARE ==
--- NOTE | 2017-03-06 21:05 | CT ---
CT OF THE CHEST WITH CONTRAST 03/06/17 Comparison is made with the prior CT dated , as well as a 02/21/17 portable film of the chest. Axial slices were acquired after giving IV contrast. Coronal reconstructions were then done. The right upper lobe consolidation has improved in the interval. There is still residual infiltrate present, but much less than before. A few areas are still rather dense and at least one area is some what nodular. Given the overall improvement over time, I feel that the changes are most likely all i nfectious in nature. One could argue for a final noncontrast followup scan in about three months to make sure there is complete resolution. No new infiltrates or effusions were seen. There is a little increased density in the right lower lobe as well. The left lung is clear. No mediastinal mass or a denopathy of concern was seen. The aorta is normal in caliber. Coronary artery calcifications are pr esent. A large hiatal hernia is noted. The visible portions of the upper abdomen showed no acute lucina nge. Some of the breast tissue in the left breast is a little asymmetric compared to the right. This is a nonspecific finding but if there has not been manual breast exam in recent times, it might be prude nt to do so. IMPRESSION: 1. Definite improvement in the right upper lobe consolidation. This mitigates towards all the f indings being most likely infectious rather than neoplastic. Since there still is a little residual and some of it is slightly nodular, it may be best to consider a followup noncontrast study in three months to ensure complete resolution. At this point, the improvement over time is definitely encour aging. 2. Coronary arteriosclerosis. 3. Large hiatal hernia. 4. Mild asymmetry of breast tissue between the two sides. Some of it on the left is a little mo re nodular. I would at least advocate for a good manual breast exam and/or perhaps other imaging suc h as mammography or ultrasound to be sure there is no pathology here. POS: [facility]
== END 2017-03-06 12:24 | disposition home or self-care (01) ==
LOC: BURCT 12:23
PROVIDERS: ATTEND Family Medicine
DX: J18.1 Lobar pneumonia, unspecified organism (principal); R91.1 Solitary pulmonary nodule; I25.10 Atherosclerotic heart disease of native coronary artery without angina pectoris; K44.9 Diaphragmatic hernia without obstruction or gangrene; N64.89 Other specified disorders of breast
CPT/HCPCS: 71260

== ENCOUNTER 2017-06-12 08:51 | Outpatient (CLI) | payer MEDICARE ==
--- NOTE | 2017-06-13 00:01 | CT ---
CT OF THE CHEST WITHOUT CONTRAST 06/12/17 Comparison is made with the 03/06/17 CT. Axial slices were acquired without IV contrast. Coronal reconstructions were then done. There has been improvement in the right upper lobe pneumonia since the prior scan. There is a small amount of residual here, but it is not large in amount. It is difficult to tell if this is merely re sidual scarring or if there is any active component left, but there had unquestionably been marked i mprovement. Some basilar atelectasis is seen bilaterally. Compressive atelectasis is particularly evident on the left due to a large hiatal hernia, not a new finding. A very small amount of pleural thickening or pleural fluid is seen in each posterior hemithorax. The mediastinum showed no mass or large amounts of adenopathy within the limitations of a noncontras t study. A few coronary artery calcifications were evident. There is no sign of pericardial fluid. Visible portions of the upper abdomen showed no acute findings (aside from constipation) within the limitations of a noncontrast study. A few sclerotic areas in the vertebrae appear to be degenerative in nature. IMPRESSION: 1. Improvement in the previously seen right upper lobe pneumonia. The findings that remain are presumably residual from the initial infection. 2. Large left sided hiatal hernia. POS: [facility]
== END 2017-06-12 08:52 | disposition home or self-care (01) ==
LOC: BURCT 08:51
PROVIDERS: ATTEND Family Medicine
DX: J18.1 Lobar pneumonia, unspecified organism (principal); J44.9 Chronic obstructive pulmonary disease, unspecified
CPT/HCPCS: 71250

== ENCOUNTER 2017-12-24 13:11 | Emergency (ER) | payer MEDICARE ==
[2017-12-24] MEDS ORDERED: Aspirin 300 MG Suppository ONE (13:23)
[2017-12-24 13:27] LABS: #Basophils 0.1 thou/uL (0.0-0.2); #Eosinphils 0.1 thou/uL (0.0-0.7); #Lymphocytes 2.8 thou/uL (1.20-3.40); #Monocytes 0.4 thou/uL (0.11-0.59); #Neutrophils 9.4 thou/uL (1.40-6.50); %Basophils 0.5 % (0.0-1.0); %Eosinophils 0.7 % (0.0-10.0); %Lymphocytes 21.9 % (21.0-51.0); %Monocytes 3.2 % (0.0-10.0); %Neutrophils 73.8 % (42.0-75.0); Hemoglobin 13.7 g/dL (12.0-16.0); Mean Corpuscular Hemoglobin 32.3 pg (27.0-31.0); Platelet Count 313 thou/uL (130-400); RBC Distribution Width 12.4 % (11.5-14.5); Red Blood Cell (RBC) Count 4.25 mill/uL (4.20-5.40); White Blood Cell (WBC) Count 12.8 thou/uL (4.8-10.8)
[2017-12-24 13:46] LABS: ALT (SGPT) 17 U/L (8-55); AST (SGOT) 22 U/L (5-34); Albumin 3.8 g/dL (3.4-4.8); Alkaline Phosphatase 70 U/L (40-150); Anion Gap 19 mmol/L (10-20); BUN (Urea Nitrogen) 21 mg/dL (9.8-20.1); Bilirubin, Total 0.4 mg/dL (0.2-1.2); Calc. Creatinine Clearance 0 mL/min (70-130); Calcium 9.9 mg/dL (7.8-10.44); Carbon Dioxide 24 mmol/L (23-31); Chloride 98 mmol/L (98-107); Estimated GFR-MDRD 63; Globulin 2.7 g/dL (2.4-3.5); Glucose 114 mg/dL (83-110); Potassium 4.6 mmol/L (3.5-5.1); Protein, Total 6.5 g/dL (6.0-8.3); Sodium 136 mmol/L (136-145)
[2017-12-24 13:48] LABS: CKMB 1.6 ng/mL (0-6.6); Troponin I Less than 0.010 ng/mL (< 0.028)
[2017-12-24 13:52] LABS: Bilirubin Negative (Negative); Blood, Urine Negative (Negative); Clarity Clear (Clear); Glucose, Urine (Dipstick) Negative (Negative); Leukocyte Negative (Negative); Nitrite Negative (Negative); Protein, Urine (Dipstick) Negative (Neg-Trace); Urobilinogen 0.2 mg/dL (0.2-1.0)
[2017-12-24 16:35] LABS: Lactic Acid 1.5 mmol/L (0.5-2.2)
[2017-12-24 16:46] LABS: Troponin I Less than 0.010 ng/mL (< 0.028)
--- NOTE | 2017-12-24 21:07 | RAD ---
PORTABLE CHEST 12/24/17 An AP portable film at 1324 is compared with a 02/21/17 study. Mild cardiomegaly is present but there are no congestive changes or pleural effusions. A large hiatal hernia is noted on the left. Elevation of the right hemidiaphragm is chronic and no different than b efore. Other than perhaps a little basilar atelectasis, there were no other infiltrative changes in t he lungs. The trachea deviates to the right as it crosses the dilated calcified aorta, IMPRESSION: Chronic changes as listed above but no acute findings. POS: [facility]
--- NOTE | 2017-12-24 21:43 | CT ---
CT OF THE BRAIN 12/24/17 Comparison is made with the prior study of 02/15/17. Some motion artifact was present on the images initially. Profound hypolucency is seen throughout the deep white matter bilaterally consistent with marked chronic ischemic change. There were no findings of an acute stroke, through a small stroke might be missed against this background without MRI. Diff use atrophy is present with mild compensatory dilatation of the ventricles. There is no ventricular s hift. There is no sign of mass or edema. The visible paranasal sinuses and mastoid air cells are anthony r. IMPRESSION: Atrophy and profound ischemic changes but no acute finding. POS: [facility]
--- NOTE | 2017-12-24 22:05 | CT ---
CT OF THE CHEST WITHOUT CONTRAST CT OF THE ABDOMEN AND PELVIS WITHOUT CONTRAST 12/24/[address] of the chest, abdomen and pelvis was performed for evaluation of chest pain and abdominal p ain. Axial slices were acquired, then coronal and sagittal reconstructions were done. CT OF THE THORAX: There are chronic changes throughout the lungs, but no lobar consolidation, or significant effusion w as seen. A large hiatal hernia with an air fluid level it in is seen on the left. The right hemidiaph ragm is elevated. The two lateral factors causes some compression of the lower lobes resulting in danilo e atelectatic change in each. The upper lobes show some chronic interstitial changes but no acute inf iltrates. There are a few areas of pleural thickening bilaterally. No pulmonary masses or concern wer e found. The mediastinum shows arterial sclerotic change in coronary vessels and the aorta. There is no sign of pericardial fluid. No mass or adenopathy was seen in the mediastinum. The great vessels ar e extraordinarily tortuous. The aorta causes the patient's trachea to deviate to the right. IMPRESSION: Chronic changes but no acute findings. CT ABDOMEN AND PELVIS: The large hiatal hernia is again noted. The liver, spleen, pancreas, adrenal glands, and kidneys show ed no acute findings within the limitations of a noncontrast scan. Dense arteriosclerosis is seen in the aorta but no aneurysm was detected. There is a large amount of fecal material in the colon, but no sign of overt obstruction. There is no dilation of small bowel. No free air or free fluid was seen. There is a particularly large amount of fecal material in the rectal vault. CT of the pelvis showed no acute changes. There were no inflammatory changes to suggest diverticuliti s. Degenerative changes are present throughout the patient's spine. IMPRESSION: 1. Hiatal hernia. 2. Constipation. POS: [facility]
== END 2017-12-24 17:00 | disposition home or self-care (01) ==
LOC: BURERS 13:11
DX: K59.00 Constipation, unspecified (principal); G30.9 Alzheimer's disease, unspecified; F02.80 Dementia in other diseases classified elsewhere, unspecified severity, without behavioral disturbance, psychotic disturbance, mood disturbance, and anxiety; E03.9 Hypothyroidism, unspecified; I10 Essential (primary) hypertension; E78.5 Hyperlipidemia, unspecified; J45.909 Unspecified asthma, uncomplicated; Z79.899 Other long term (current) drug therapy
CPT/HCPCS: 51702; 70450; 71045; 71250; 74177; 80053; 81003; 82553; 83605; 84484; 85025; 87086; 93005; 96360